=== PATIENT | male | born 1980 | race Two or more races ===

== ENCOUNTER 2020-04-13 19:32 | Emergency (ER) | payer BC ==
[~2020-04-13] VITALS: Ht 177.8 cm; Wt 122.7 kg
[2020-04-13] MEDS ORDERED: KETOROLAC TROMETHAMINE 30 MG/ML VIAL IM ONE (21:00)
[2020-04-13 21:15] VITALS: BP 125/87
== END 2020-04-13 21:42 | disposition home or self-care (01) ==
LOC: EMS 19:33
DX: S42.491A Other displaced fracture of lower end of right humerus, initial encounter for closed fracture (principal); V87.8XXA Person injured in other specified noncollision transport accidents involving motor vehicle (traffic), initial encounter; Y93.89 Activity, other specified; Y92.488 Other paved roadways as the place of occurrence of the external cause; Y99.8 Other external cause status
CPT/HCPCS: 73030; 96372; 99283; J1885